=== PATIENT | male | born 1960 | race Caucasian/White ===

== ENCOUNTER 2017-07-03 08:24 | Emergency (ER) | payer OTHER ==
[~2017-07-03] VITALS: Ht 175.3 cm; Wt 86.2 kg
[~2017-07-03 08:24] MED LIST: OXYC1CAP; TMSL.4C
[2017-07-03] MEDS ORDERED: KETOROLAC 30 MG/ML VIAL IVP STA (08:30)
[2017-07-03] MEDS ORDERED: NS IV 1000 ML 1,000 ML IV ONE (08:30)
[2017-07-03] MEDS ORDERED: ONDANSETRON 4 MG/2 ML (SDV) Z0FRAN IVP ONE (08:30)
--- OUTSIDE RECORDS SUMMARY | 2017-07-03 08:30 | XMS REPORT ---
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
--- NOTE | 2017-07-03 08:42 | ED Abdominal Pain ---
General Chief Complaint: Abdominal/GI Problems Stated Complaint: KIDNEY STONES Source of Information: Patient Exam Limitations: No Limitations History of Present Illness Date Seen by Provider: Jul 03, 2017 Time Seen by Provider: 08:27 Initial Comments PT ARRIVES VIA POV FROM HOME C/O SEVERE RIGHT FLANK AND RIGHT SIDED ABDOMINAL PAIN SINCE 0700 THIS AM C/O NAUSEA AND DRY HEAVES NO PROBLEMS URINATING NO FEVER PT HAD THE SAME ON WEDNESDAY, BUT IT GOT BETTER AFTER A FEW HOURS, BUT HAS CONTINUED TO HAVE TENDERNESS IN THE AREA ALL WEEK AND PAIN NEVER WENT AWAY COMPLETELY PT HAS HAD A KIDNEY STONE IN THE PAST AND THIS IS THE SAME--WAS IN 2009, AND HAD LITHOTRIPSY PCP: DR. KEYES UROLOGY: DR. CAMEJO Allergies and Home Medications Allergies Coded Allergies: Harpreet Known Allergies (Unverified Allergy, Mild, 05/01/09) Home Medications Ciprofloxacin HCl 500 Mg Tablet, 500 MG PO BID Prescribed by: APURVA ROBERTS on 07/03/17 1004 Hydrocodone/Ibuprofen 1 Each Tablet, 1 EACH PO Q 4 HOURS Prescribed by: APURVA ROBERTS on 07/03/17 1004 Ondansetron 4 Mg Tab.rapdis, 4 MG PO Q4H Prescribed by: APURVA ROBERTS on 07/03/17 1004 Tamsulosin HCl 0.4 Mg Cap, 0.4 MG PO DAILY Prescribed by: APURVA ROBERTS on 07/03/17 1004 Patient Home Medication List Home Medication List Reviewed: Yes Review of Systems Constitutional: no symptoms reported Respiratory: No Symptoms Reported Cardiovascular: No Symptoms Reported Gastrointestinal: See HPI, Abdominal Pain, Nausea; Denies Vomiting (DRY HEAVES) Genitourinary: See HPI; Denies Frequency; Flank Pain; Denies Hematuria, Denies Pain, Denies Urgency Musculoskeletal: see HPI, back pain Skin: no symptoms reported Psychiatric/Neurological: No Symptoms Reported Endocrine: No Symptoms Reported Hematologic/Lymphatic: No Symptoms Reported Past Avuxypb-Byrlgx-Iqftma Hx Patient Social History Alcohol Use: Denies Use Recreational Drug Use: No Smoking Status: Never a Smoker Recent Foreign Travel: No Contact w/Someone Who Travel: No Past Medical History Surgeries: Yes (LITHOTRIPSY 2009; HERNIA REPAIR A CHILD) Abdominal, Renal Respiratory: No Cardiac: No Neurological: No Reproductive Disorders: No Genitourinary: Yes Kidney Stones Gastrointestinal: Yes (HERNIA REPAIR CHILD) Musculoskeletal: No Endocrine: No HEENT: No Cancer: No Psychosocial: No Integumentary: No Blood Disorders: No Physical Exam Vital Signs Vital Signs - First Documented 07/03/17 08:26 Temp 97.2 Pulse 97 Resp 18 B/P (MAP) 138/87 (104) O2 Delivery Nasal Cannula Capillary Refill : General Appearance: WD/WN, other (LOOKS UNCOMFORTABLE, AND HOLDING A WASTEBASKET WITH DRY HEAVING ) Neck: normal inspection Respiratory: normal breath sounds, no accessory muscle use Cardiovascular: regular rate, rhythm, no murmur Gastrointestinal: normal bowel sounds, soft, no organomegaly, no pulsatile mass ; No distended, No guarding, No rebound; tenderness (RIGHT FLANK AND DIFFUSE RIGHT SIDED ABDOMINAL TENDERNESS); No hernia, No mass Extremities: normal inspection Back: no vertebral tenderness, CVA tenderness (R) Neurologic/Psychiatric: 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, no motor/sensory deficits, alert, oriented x 3 Skin: normal color, warm/dry Progress/Results/Core Measures Lab Results Laboratory Tests Test 07/03/17 08:30 07/03/17 09:20 Range/Units White Blood Count 6.0 4.3-11.0 10^3/uL Red Blood Count 5.23 4.35-5.85 10^6/uL Hemoglobin 17.0 13.3-17.7 G/DL Hematocrit 48 40-54 % Mean Corpuscular Volume 91 80-99 FL Mean Corpuscular Hemoglobin 33 25-34 PG Mean Corpuscular Hemoglobin Concent 36 32-36 G/DL Red Cell Distribution Width 12.4 10.0-14.5 % Platelet Count 237 130-400 10^3/uL Mean Platelet Volume 10.8 H 7.4-10.4 FL Neutrophils (%) (Auto) 48 42-75 % Lymphocytes (%) (Auto) 37 12-44 % Monocytes (%) (Auto) 11 0-12 % Eosinophils (%) (Auto) 3 0-10 % Basophils (%) (Auto) 1 0-10 % Neutrophils # (Auto) 2.9 1.8-7.8 X 10^3 Lymphocytes # (Auto) 2.3 1.0-4.0 X 10^3 Monocytes # (Auto) 0.7 0.0-1.0 X 10^3 Eosinophils # (Auto) 0.2 0.0-0.3 10^3/uL Basophils # (Auto) 0.0 0.0-0.1 10^3/uL Sodium Level 142 135-145 MMOL/L Potassium Level 4.6 3.6-5.0 MMOL/L Chloride Level 108 H 98-107 MMOL/L Carbon Dioxide Level 28 21-32 MMOL/L Anion Gap 6 5-14 MMOL/L Blood Urea Nitrogen 24 H 7-18 MG/DL Creatinine 1.29 0.60-1.30 MG/DL Estimat Glomerular Filtration Rate 57 BUN/Creatinine Ratio 19 Glucose Level 98 70-105 MG/DL Calcium Level 9.2 8.5-10.1 MG/DL Total Bilirubin 0.8 0.1-1.0 MG/DL Aspartate Amino Transf (AST/SGOT) 14 5-34 U/L Alanine Aminotransferase (ALT/SGPT) 18 0-55 U/L Alkaline Phosphatase 54 40-136 U/L Total Protein 6.7 6.4-8.2 GM/DL Albumin 4.3 3.2-4.5 GM/DL Amylase Level 57 25-125 U/L Lipase 41 8-78 U/L Urine Color YELLOW Urine Clarity SLIGHTLY CLOUDY Urine pH 6 5-9 Urine Specific [place] 1.025 H 1.016-1.022 Urine Protein 2+ H NEGATIVE Urine Glucose (UA) NEGATIVE NEGATIVE Urine Ketones NEGATIVE NEGATIVE Urine Nitrite NEGATIVE NEGATIVE Urine Bilirubin NEGATIVE NEGATIVE Urine Urobilinogen NORMAL NORMAL MG/DL Urine Leukocyte Esterase 1+ H NEGATIVE Urine RBC (Auto) 5+ H NEGATIVE Urine RBC >100 H /HPF Urine WBC 2-5 /HPF Urine Squamous Epithelial Cells NONE /HPF Urine Crystals NONE /LPF Urine Bacteria NEGATIVE /HPF Urine Casts NONE /LPF Urine Mucus MODERATE H /LPF Urine Culture Indicated NO My Orders Orders - APURVA ROBERTS DO Ct Abd/Pelvis Wo(Kidney Stone) (07/03/17 08:30) Amylase (07/03/17 08:30) Cbc With Automated Diff (07/03/17 08:30) Comprehensive Metabolic Panel (07/03/17 08:30) Lipase (07/03/17 08:30) Ua Culture If Indicated (07/03/17 08:30) Saline Lock/Iv-Start (07/03/17 08:30) Ketorolac Injection (Toradol Injection) (07/03/17 08:30) Ondansetron Injection (Zofran Injectio (07/03/17 08:30) Saline Lock/Iv-Start (07/03/17 08:30) Ns Iv 1000 Ml (Sodium Chloride 0.9%) (07/03/17 08:30) Abdomen/Kub 1view (07/03/17 08:30) Morphine Injection (Morphine Injection (07/03/17 09:25) Alfuzosin (Not Stocked) (Uroxatral (Not (07/03/17 09:30) Medications Given in ED Current Medications Medications Dose Ordered Sig/Yudelka Route Start Time Stop Time Status Last Admin Dose Admin Ondansetron HCl 4 mg ONCE ONCE IVP 07/03/17 08:30 07/03/17 08:32 DC 07/03/17 08:39 4 MG Sodium Chloride 1,000 ml @ 0 mls/hr Q0M ONCE IV 07/03/17 08:30 07/03/17 08:32 DC 07/03/17 08:39 1,000 MLS/HR Vital Signs/I&O 07/03/17 08:26 Temp 97.2 Pulse 97 Resp 18 B/P (MAP) 138/87 (104) O2 Delivery Nasal Cannula Progress Note : Progress Note NAUSEA RESOLVED WITH ZOFRAN MODERATE PAIN RELIEF WITH TORADOL GIVEN MORPHINE--PAIN COMPLETELY RELIEVED Comments KUB--CALCIFICATION NEAR RIGHT ILIAC CREST CT ABDOMEN/PELVIS--3-4 MM CALCIFICATION RIGHT MID URETER, WITH MILD OBSTRUCTIVE UROPATHY, BILATERAL NON-OBSTRUCTING INTRARENAL STONES, MULTIPLE HEPATIC CYSTIC LESIONS ALL PER RADIOLOGIST REPORTS @ 0918 Reviewed: Reviewed by Me Departure Impression Primary Impression: Right ureteral calculus Additional Impression: HEPATIC CYSTS Disposition: 01 HOME, SELF-CARE Condition: Improved Departure-Patient Inst. Referrals: BALWINDER KEYES DO (PCP/Family) Primary Care Physician GUSTAVO CAMEJO MD Patient Instructions: Cysts in the Liver, Kidney Stones (DC) Add. Discharge Instructions: LOTS OF CLEAR LIQUIDS STRAIN ALL URINE--RETURN ANY STONES TO DR. CAMEJO'S OFFICE RETURN TO ER IF SYMPTOMS WORSEN All discharge instructions reviewed with patient and/or family. Voiced understanding. Scripts Ondansetron (Zofran Odt) 4 Mg Tab.rapdis 4 MG PO Q4H for Nausea/Vomiting, #10 TAB Prov: APURVA ROBERTS DO 07/03/17 Hydrocodone/Ibuprofen (Hydrocodone-Ibuprofen 5-200 mg) 1 Each Tablet 1 EACH PO Q 4 HOURS for Pain, #20 TAB Prov: APURVA ROBERTS DO 07/03/17 Tamsulosin HCl (Flomax) 0.4 Mg Cap 0.4 MG PO DAILY, #10 CAP Prov: APURVA ROBERTS DO 07/03/17 Ciprofloxacin HCl (Cipro) 500 Mg Tablet 500 MG PO BID, #20 TAB Prov: APURVA ROBERTS DO 07/03/17 APURVA ROBERTS DO Jul 03, 2017 08:42
[2017-07-03 08:54] LABS: BASOPHILS % (AUTO) 1 % (0-10); EOSINOPHILS # (AUTO) 0.2 10^3/uL (0.0-0.3); EOSINOPHILS % (AUTO) 3 % (0-10); HEMATOCRIT 48 % (40-54); LYMPHOCYTES # (AUTO) 2.3 X 10^3 (1.0-4.0); LYMPHOCYTES % (AUTO) 37 % (12-44); MEAN CORPUSCULAR HEMOGLOBIN 33 PG (25-34); MEAN CORPUSCULAR HGB CONC 36 G/DL (32-36); MEAN CORPUSCULAR VOLUME 91 FL (80-99); MEAN PLATELET VOLUME 10.8 FL (7.4-10.4); MONOCYTES # (AUTO) 0.7 X 10^3 (0.0-1.0); MONOCYTES % (AUTO) 11 % (0-12); NEUTROPHILS # (AUTO) 2.9 X 10^3 (1.8-7.8); NEUTROPHILS % (AUTO) 48 % (42-75); PLATELET COUNT 237 10^3/uL (130-400); RED BLOOD COUNT 5.23 10^6/uL (4.35-5.85); RED CELL DISTRIBUTION WIDTH 12.4 % (10.0-14.5)
--- NOTE | 2017-07-03 09:02 | Diagnostic Imaging Report ---
INDICATION: History of kidney stones COMPARISON: 05/10/09 FINDINGS: Two views of the abdomen demonstrate phleboliths within the pelvis. The right double-J stent has been removed. There is questionable calcification just above the right iliac crest. See dictated CT report. There is mild constipation. IMPRESSION: 1. Questionable calcification just above the right iliac crest. See dictated CT report. 2. Constipation Dictated by: Dictated on workstation # [id number]
[2017-07-03 09:09] LABS: ALBUMIN 4.3 GM/DL (3.2-4.5); BILIRUBIN,TOTAL 0.8 MG/DL (0.1-1.0); CALCIUM 9.2 MG/DL (8.5-10.1); CREATININE SERUM 1.29 MG/DL (0.60-1.30); POTASSIUM 4.6 MMOL/L (3.6-5.0); TOTAL PROTEIN 6.7 GM/DL (6.4-8.2)
--- NOTE | 2017-07-03 09:09 | Diagnostic Imaging Report ---
PROCEDURE: CT urinary tract, rule out kidney stone. TECHNIQUE: Multiple contiguous axial images were obtained through the abdomen and pelvis without the use of intravenous contrast. INDICATION: Abdominal pain, history of nephrolithiasis. CORRELATION STUDY: 05/01/2009 FINDINGS: LOWER THORAX: Clear. Heart size borderline. LIVER: Multiple low-density masses scattered throughout the liver parenchyma most compatible with cyst. Overall number may be slightly increased. GALLBLADDER: Present and unremarkable. No bile duct dilatation. SPLEEN: Unremarkable. PANCREAS: Unremarkable. ADRENAL GLANDS: Unremarkable. KIDNEYS: 3-4 mm stone located right mid ureter to approximately L5 level results in mild right-sided obstructive uropathy. Additional nonobstructing stone superior pole right kidney. Nonobstructing stone left kidney. Low-density mass right kidney favoring probable cyst. Mild symmetric bilateral perinephric stranding. ABDOMINAL AORTA: Unremarkable, nonaneurysmal. GASTROINTESTINAL TRACT: No obstruction or inflammation. Normal appendix. A few colonic diverticuli are present. No diverticulitis. URINARY BLADDER: Relatively decompressed. REPRODUCTIVE: Prostate gland enlarged. OSSEOUS STRUCTURES: No acute abnormality. IMPRESSION: 1. A 3-4 mm stone located in the right mid ureter results in mild right-sided obstructive uropathy. Additional nonobstructing bilateral renal stones. 2. Prostate gland enlargement. 3. Multiple probable hepatic cysts may be slightly increased in overall number. 4. Colonic diverticula without evidence for acute diverticulitis. Dictated by: Dictated on workstation # [id number]
[2017-07-03] MEDS ORDERED: morphine INJ 10 MG/ML 1ML (SYR OR VIAL) IVP STA (09:25)
[2017-07-03] MEDS ORDERED: ALFUZOSIN HCL 10 MG TAB (UROXATRAL) PO SCH (09:30)
[2017-07-03 09:43] LABS: BILIRUBIN,URINE NEGATIVE (NEGATIVE); CLARITY,URINE SLIGHTLY CLOUDY; COLOR,URINE YELLOW; GLUCOSE, URINE (UA) NEGATIVE (NEGATIVE); KETONES,URINE NEGATIVE (NEGATIVE); LEUKOCYTE ESTERASE ,URINE 1+ (NEGATIVE); NITRITE,URINE NEGATIVE (NEGATIVE); PH,URINE 6 (5-9); PROTEIN,URINE 2+ (NEGATIVE); UROBILINOGEN,URINE NORMAL (NORMAL)
[2017-07-03 10:03] LABS: BACTERIA,URINE NEGATIVE /HPF; RBC,URINE >100 /HPF
[2017-07-03] MEDS ORDERED: HYDR-3990 PO (10:04)
[2017-07-03] MEDS ORDERED: ONDA4TAB8 PO (10:04)
[2017-07-03] MEDS ORDERED: TAMS0.4C98 PO (10:04)
[2017-07-03] MEDS ORDERED: CIPR-225 PO (10:04)
[2017-07-03 10:19] VITALS: BP 134/74
== END 2017-07-03 10:22 | disposition home or self-care (01) ==
LOC: EDUNIT# 08:24 → ER 08:26
DX: N20.1 Calculus of ureter (principal); K76.89 Other specified diseases of liver; Z98.890 Other specified postprocedural states
CPT/HCPCS: 36415; 74018; 74176; 80053; 81000; 82150; 83690; 85025; 96361; 96374; 96375

== ENCOUNTER 2020-11-20 11:51 | Emergency (ER) | payer BC ==
[~2020-11-20] VITALS: Ht 175 cm; Wt 86.0 kg
[~2020-11-20 11:51] MED LIST changes: +CIPR-225 PO; +HYDR-3990 PO; +ONDA4TAB8 PO; +TMSL.4C PO
[2020-11-20] MEDS ORDERED: LACTATED RINGERS 1,000 ML IV SCH (12:00)
[2020-11-20] MEDS ORDERED: KETOROLAC 30 MG/ML VIAL IVP ONE (12:00)
[2020-11-20] MEDS ORDERED: ONDANSETRON 4 MG/2 ML (SDV) Z0FRAN IVP ONE (12:00)
--- NOTE | 2020-11-20 12:06 | ED General ---
General Stated Complaint: BACK PAIN,N/V Source of Information: Patient Exam Limitations: No Limitations History of Present Illness Date Seen by Provider: Nov 20, 2020 Time Seen by Provider: 12:04 Initial Comments To ER with right flank and lower abdomen pain, nausea vomiting. History of kidney stones and this feels similar. This pain began this morning at about 6:30 AM. He passed one on his own and had lithotripsy on one as well historically. he takes no antiplatelet or anticoagulant medications. He takes no medications of any kind for that matter. Timing/Duration: 4-6 Hours Associated Systoms: Nausea/Vomiting Allergies and Home Medications Allergies Coded Allergies: NKANo Known Allergies (Unverified Allergy, Mild, 05/01/09) Patient Home Medication List Home Medication List Reviewed: Yes Cefuroxime Axetil (Cefuroxime) 250 Mg Tablet, 250 MG PO BID Prescribed by: CHIQUI DAWSON on 11/20/20 1256 Ciprofloxacin HCl (Cipro) 500 Mg Tablet, 500 MG PO BID Prescribed by: APURVA ROBERTS on 07/03/17 1004 Hydrocodone/Acetaminophen (Hydrocodone-Acetamin 5-325 mg) 1 Each Tablet, 1 TAB PO Q4H PRN for PAIN-MODERATE (5-7) Prescribed by: CHIQUI DAWSON on 11/20/20 1257 Hydrocodone/Ibuprofen (Hydrocodone-Ibuprofen 5-200 mg) 1 Each Tablet, 1 EACH PO Q 4 HOURS Prescribed by: APURVA ROBERTS on 07/03/17 1004 Ondansetron (Zofran Odt) 4 Mg Tab.rapdis, 4 MG PO Q4H Prescribed by: APURVA ROBERTS on 07/03/17 1004 Ondansetron (Ondansetron Odt) 8 Mg Tab.rapdis, 8 MG PO Q6H PRN for NAUSEA/VOMITING-1ST LINE Prescribed by: CHIQIU DAWSON on 11/20/20 1256 Tamsulosin HCl (Flomax) 0.4 Mg Cap, 0.4 MG PO DAILY Prescribed by: APURVA ROBERTS on 07/03/17 1004 Tamsulosin HCl (Flomax) 0.4 Mg Cap, 0.4 MG PO DAILY Prescribed by: CHIQUI DAWSON on 11/20/20 1256 [None] , (Reported) Entered as Reported by: CLAUDIO PORTILLO on 05/01/09 7625 Review of Systems Review of Systems Constitutional: see HPI EENTM: see HPI Respiratory: no symptoms reported Cardiovascular: no symptoms reported Genitourinary: no symptoms reported Musculoskeletal: no symptoms reported Skin: no symptoms reported Psychiatric/Neurological: No Symptoms Reported Hematologic/Lymphatic: No Symptoms Reported Past Nviffcv-Ssccam-Ijodec Hx Past Medical History Surgeries: Yes (LITHOTRIPSY 2009; HERNIA REPAIR A CHILD) Abdominal, Renal Respiratory: No Cardiac: No Neurological: No Reproductive Disorders: No Genitourinary: Yes Kidney Stones Gastrointestinal: Yes (HERNIA REPAIR CHILD) Musculoskeletal: No Endocrine: No HEENT: No Cancer: No Psychosocial: No Integumentary: No Blood Disorders: No Physical Exam Vital Signs Vital Signs - First Documented 11/20/20 12:00 Temp 36.7 Pulse 40 Resp 18 B/P (MAP) 149/70 (96) Pulse Ox 98 O2 Delivery Room Air Capillary Refill : Height, Weight, BMI Height: 5'9.00" Weight: 190lbs. oz. 86.145204nw; BMI Method:Stated General Appearance: No Apparent Distress, WD/WN Eyes: Bilateral Eye Normal Inspection, Bilateral Eye PERRL, Bilateral Eye EOMI Neck: Full Range of Motion, Normal Inspection Respiratory: No Accessory Muscle Use, No Respiratory Distress Cardiovascular: Normal Peripheral Pulses, Bradycardia (Bradycardic sinus at 40- 45. When asked if he has a history of this he states "well they always ask me if I am relaxed". He takes no medications of any kind.) Gastrointestinal: Non Tender, Soft Neurologic/Psychiatric: Alert, Oriented x3 Progress/Results/Core Measures Suspected Sepsis SIRS Temperature: Pulse: Respiratory Rate: Laboratory Tests 11/20/20 12:03: White Blood Count 10.5 Blood Pressure / Mean: Laboratory Tests 11/20/20 12:03: Creatinine 1.56H, Platelet Count 235, Total Bilirubin 1.1H Results/Orders Lab Results Laboratory Tests Test 11/20/20 12:03 11/20/20 13:05 Range/Units White Blood Count 10.5 4.3-11.0 10^3/uL Red Blood Count 5.29 4.30-5.52 10^6/uL Hemoglobin 17.1 13.3-17.7 g/dL Hematocrit 49 40-54 % Mean Corpuscular Volume 93 80-99 fL Mean Corpuscular Hemoglobin 32 25-34 pg Mean Corpuscular Hemoglobin Concent 35 32-36 g/dL Red Cell Distribution Width 12.2 10.0-14.5 % Platelet Count 235 130-400 10^3/uL Mean Platelet Volume 10.6 9.0-12.2 fL Immature Granulocyte % (Auto) 0 % Neutrophils (%) (Auto) 86 H 42-75 % Lymphocytes (%) (Auto) 9 L 12-44 % Monocytes (%) (Auto) 5 0-12 % Eosinophils (%) (Auto) 0 0-10 % Basophils (%) (Auto) 0 0-10 % Neutrophils # (Auto) 9.0 H 1.8-7.8 10^3/uL Lymphocytes # (Auto) 0.9 L 1.0-4.0 10^3/uL Monocytes # (Auto) 0.5 0.0-1.0 10^3/uL Eosinophils # (Auto) 0.0 0.0-0.3 10^3/uL Basophils # (Auto) 0.0 0.0-0.1 10^3/uL Immature Granulocyte # (Auto) 0.0 0.0-0.1 10^3/uL Neutrophils % (Manual) 87 % Lymphocytes % (Manual) 9 % Monocytes % (Manual) 4 % Blood Morphology Comment NORMAL Sodium Level 137 135-145 MMOL/L Potassium Level 4.8 3.6-5.0 MMOL/L Chloride Level 102 98-107 MMOL/L Carbon Dioxide Level 25 21-32 MMOL/L Anion Gap 10 5-14 MMOL/L Blood Urea Nitrogen 20 H 7-18 MG/DL Creatinine 1.56 H 0.60-1.30 MG/DL Estimat Glomerular Filtration Rate 45 BUN/Creatinine Ratio 13 Glucose Level 111 H 70-105 MG/DL Calcium Level 9.4 8.5-10.1 MG/DL Corrected Calcium 9.1 8.5-10.1 MG/DL Total Bilirubin 1.1 H 0.1-1.0 MG/DL Aspartate Amino Transf (AST/SGOT) 16 5-34 U/L Alanine Aminotransferase (ALT/SGPT) 19 0-55 U/L Alkaline Phosphatase 56 40-136 U/L Total Protein 6.9 6.4-8.2 GM/DL Albumin 4.4 3.2-4.5 GM/DL Urine Color YELLOW Urine Clarity CLEAR Urine pH 6.5 5-9 Urine Specific [place] >=1.030 1.016-1.022 Urine Protein 1+ H NEGATIVE Urine Glucose (UA) NEGATIVE NEGATIVE Urine Ketones 1+ H NEGATIVE Urine Nitrite NEGATIVE NEGATIVE Urine Bilirubin NEGATIVE NEGATIVE Urine Urobilinogen 0.2 < = 1.0 MG/DL Urine Leukocyte Esterase NEGATIVE NEGATIVE Urine RBC (Auto) 3+ H NEGATIVE Urine RBC 50-100 H /HPF Urine WBC RARE /HPF Urine Crystals NONE /LPF Urine Bacteria FEW H /HPF Urine Casts NONE /LPF Urine Mucus SMALL H /LPF Urine Yeast MODERATE H /HPF Urine Culture Indicated YES My Orders Orders - CHIQUI DAWSON APRN Cbc With Automated Diff (11/20/20 11:53) Comprehensive Metabolic Panel (11/20/20 11:53) Ua Culture If Indicated (11/20/20 11:53) Ed Iv/Invasive Line Start (11/20/20 11:53) Ketorolac Injection (Toradol Injection) (11/20/20 12:00) Ondansetron Injection (Zofran Injectio (11/20/20 12:00) Lactated Ringers (Lr 1000 Ml Iv Solution (11/20/20 12:00) Ct Abd/Pelvis Wo(Kidney Stone) (11/20/20 11:59) Abdomen/Kub 1view (11/20/20 11:59) Ekg Tracing (11/20/20 12:04) Manual Differential (11/20/20 12:03) Urine Culture (11/20/20 13:05) Medications Given in ED Current Medications Medications Dose Ordered Sig/Yudelka Route Start Time Stop Time Status Last Admin Dose Admin Ketorolac Tromethamine 15 mg ONCE ONCE IVP 11/20/20 12:00 11/20/20 12:01 DC 11/20/20 12:12 15 MG Ondansetron HCl 8 mg ONCE ONCE IVP 11/20/20 12:00 11/20/20 12:01 DC 11/20/20 12:10 8 MG Vital Signs/I&O 11/20/20 11/20/20 11/20/20 12:00 12:51 13:39 Temp 36.7 36.7 Pulse 40 49 45 Resp 18 18 18 B/P (MAP) 149/70 (96) 137/72 129/69 Pulse Ox 98 97 96 O2 Delivery Room Air Room Air Room Air Capillary Refill : Diagnostic Imaging Diagonstic Imaging: Xray, CT Comments NAME: IHS[facility]ILL [facility] REC#: [id number] PT STATUS: REG ER : 1960 PHYSICIAN: CHQIUI DAWSON APRN ADMIT DATE: 11/20/20/ER Draft Date of Exam:11/20/20 ABDOMEN/KUB 1VIEW INDICATION: kidney stone. TECHNIQUE: 2 supine view of the abdomen 12:47 PM CORRELATION STUDY: 06/25/2017 FINDINGS: Moderate amount of overlying bowel gas and stool obscures detail for assessment of calcifications. There is presence of small calcification superimposed over the superior aspect the L5 transverse process. This may correspond to a previous calcification demonstrated on the prior study. Otherwise, no definitive calcification of the renal silhouettes and their expected course of either ureter. Phlebolith-like calcification the pelvis, stable. Spina bifida occulta defect low at the S1 level. IMPRESSION: 1. Small faint calcification over the right L5 transverse process. Possibility this reflects a ureteric calcification would be difficult to exclude. This however may have been present on prior study of 3 years earlier as well. Dictated on workstation # [id number] Dict: 11/20/20 1247 Trans: 11/20/20 1251 XAVIER [id number] Interpreted by: KERA COLIN DO Electronically signed by: Departure Communication (Admissions) Family Conversation EKG shows sinus rate or 39 (bp is 110 systolic, no chest pain, alert and oriented). Sinus in origin normal intervals no ectopy 1322-Discussed with the patient and his the need to follow-up with Dr. KEYES in regards to the transient bradycardia. At this time he is sinus 55-65. This may have been a vasovagal episode from the pain. He states that sometimes he does get lightheaded. His pressures have been fine during his ER stay. Impression Primary Impression: Right ureteral calculus Disposition: 01 HOME, SELF-CARE Condition: Stable Departure-Patient Inst. Decision time for Depature: 12:53 Referrals: BALWINDER KEYES DO (PCP/Family) Primary Care Physician GUSTAVO POLLARD MD Patient Instructions: Kidney Stone, Adult ED Add. Discharge Instructions: 1. Increase fluid intake 2. Medication as directed 3. Return to ER for intolerable pain, intolerable nausea and vomiting, fevers or chills. If you fail to pass this over the course of this week then call Dr. Pollard's office on Wednesday to make an appointment to be seen Scripts Cefuroxime Axetil (Cefuroxime) 250 Mg Tablet 250 MG PO BID, #10 TAB Prov: CHIQUI DAWSON APRN 11/20/20 Ondansetron (Ondansetron Odt) 8 Mg Tab.rapdis 8 MG PO Q6H PRN for NAUSEA/VOMITING-1ST LINE, #10 TAB Prov: CHIQUI DAWSON APRN 11/20/20 Hydrocodone/Acetaminophen (Hydrocodone-Acetamin 5-325 mg) 1 Each Tablet 1 TAB PO Q4H PRN for PAIN-MODERATE (5-7), #20 TAB Prov: CHIUQI DAWSON APRN 11/20/20 Tamsulosin HCl (Flomax) 0.4 Mg Cap 0.4 MG PO DAILY, #10 CAP Prov: CHIQUI DAWSON APRN 11/20/20 CHIQUI DAWSON APRN Nov 20, 2020 12:06
[2020-11-20 12:11] LABS: BASOPHILS % (AUTO) 0 % (0-10); EOSINOPHILS % (AUTO) 0 % (0-10); HEMATOCRIT 49 % (40-54); HEMOGLOBIN 17.1 g/dL (13.3-17.7); LYMPHOCYTES # (AUTO) 0.9 10^3/uL (1.0-4.0); LYMPHOCYTES % (AUTO) 9 % (12-44); MEAN CORPUSCULAR HEMOGLOBIN 32 pg (25-34); MEAN CORPUSCULAR HGB CONC 35 g/dL (32-36); MEAN CORPUSCULAR VOLUME 93 fL (80-99); MEAN PLATELET VOLUME 10.6 fL (9.0-12.2); MONOCYTES # (AUTO) 0.5 10^3/uL (0.0-1.0); MONOCYTES % (AUTO) 5 % (0-12); NEUTROPHILS % (AUTO) 86 % (42-75); PLATELET COUNT 235 10^3/uL (130-400); WHITE BLOOD COUNT 10.5 10^3/uL (4.3-11.0)
[2020-11-20 12:22] LABS: ALBUMIN 4.4 GM/DL (3.2-4.5); POTASSIUM 4.8 MMOL/L (3.6-5.0)
[2020-11-20 12:23] LABS: CALCIUM 9.4 MG/DL (8.5-10.1)
[2020-11-20 12:24] LABS: TOTAL PROTEIN 6.9 GM/DL (6.4-8.2)
[2020-11-20 12:26] LABS: BILIRUBIN,TOTAL 1.1 MG/DL (0.1-1.0)
[2020-11-20 12:28] LABS: CREATININE SERUM 1.56 MG/DL (0.60-1.30)
--- NOTE | 2020-11-20 12:51 | Diagnostic Imaging Report ---
INDICATION: kidney stone. TECHNIQUE: 2 supine view of the abdomen 12:47 PM CORRELATION STUDY: 06/25/2017 FINDINGS: Moderate amount of overlying bowel gas and stool obscures detail for assessment of calcifications. There is presence of small calcification superimposed over the superior aspect the L5 transverse process. This may correspond to a previous calcification demonstrated on the prior study. Otherwise, no definitive calcification of the renal silhouettes and their expected course of either ureter. Phlebolith-like calcification the pelvis, stable. Spina bifida occulta defect low at the S1 level. IMPRESSION: 1. Small faint calcification over the right L5 transverse process. Possibility this reflects a ureteric calcification would be difficult to exclude. This however may have been present on prior study of 3 years earlier as well. Dictated by: Dictated on workstation # [id number]
[2020-11-20] MEDS ORDERED: CEFU250T80 PO (12:56)
[2020-11-20] MEDS ORDERED: ONDA8TAB13 PO (12:56)
[2020-11-20] MEDS ORDERED: TMSL.4C PO (12:56)
[2020-11-20] MEDS ORDERED: ACHD5005 PO (12:56)
[2020-11-20 12:57] LABS: LYMPHOCYTES % (MANUAL) 9 %; MONOCYTES % (MANUAL) 4 %; NEUTROPHILS % (MANUAL) 87 %
[2020-11-20 13:00] LABS: RBC MORPH NORMAL
--- NOTE | 2020-11-20 13:03 | Diagnostic Imaging Report ---
PROCEDURE: CT urinary tract, rule out kidney stone. TECHNIQUE: Multiple contiguous axial images were obtained through the abdomen and pelvis without the use of intravenous contrast. Auto Exposure Controls were utilized during the CT exam to meet ALARA standards for radiation dose reduction. INDICATION: Back pain with nausea and vomiting. COMPARISON: 07/03/2017. FINDINGS: The lung bases are clear. Numerous hepatic circumscribed low-attenuation lesions are again noted, consistent with cysts. The gallbladder is unremarkable. There is no biliary ductal dilatation. The pancreas and spleen are unremarkable. No adrenal mass is detected. There are punctate nonobstructing renal calculi bilaterally. In addition, there is a 4 mm calculus at the junction of the proximal and mid right ureter producing mild hydroureteronephrosis. No other ureteral calculi are seen. The aorta is unremarkable. The bowel loops are of normal caliber. There is no obstruction. There is diverticulosis of the sigmoid and descending colon but no evidence of acute diverticulitis. The bladder is decompressed. The prostate gland is enlarged. IMPRESSION: 1. Hepatic cysts. 2. Bilateral nonobstructing nephrolithiasis. In addition, there is a 4 mm calculus at the junction of the proximal and mid right ureter producing mild hydroureteronephrosis. 3. Uncomplicated diverticulosis. Dictated by: Dictated on workstation # [id number]
[2020-11-20 13:12] LABS: CLARITY,URINE CLEAR; COLOR,URINE YELLOW; GLUCOSE, URINE (UA) NEGATIVE (NEGATIVE); KETONES,URINE 1+ (NEGATIVE); LEUKOCYTE ESTERASE ,URINE NEGATIVE (NEGATIVE); NITRITE,URINE NEGATIVE (NEGATIVE); PH,URINE 6.5 (5-9); PROTEIN,URINE 1+ (NEGATIVE)
[2020-11-20 13:22] LABS: BACTERIA,URINE FEW /HPF; BILIRUBIN,URINE NEGATIVE (NEGATIVE); RBC,URINE 50-100 /HPF; WBC,URINE RARE /HPF; YEAST,URINE MODERATE /HPF
[2020-11-20 13:39] VITALS: BP 129/69
== END 2020-11-20 13:39 | disposition home or self-care (01) ==
LOC: EDUNIT# 11:51 → ER 11:53
DX: N13.2 Hydronephrosis with renal and ureteral calculous obstruction (principal)
CPT/HCPCS: 36415; 74018; 74176; 80053; 81000; 85007; 85027; 87088; 93005